=== PATIENT | male | born 1985 ===

== ENCOUNTER 2023-10-24 09:49 | Outpatient (AMB) | payer OTHER, SELFPAY ==
--- NOTE | 2023-10-24 09:59 | A.OFFPC_ITS ---
Vital Signs 10/24/23 10:02 Height 5 ft 7.32 in Weight 296 lb 2 oz BMI 45.9 BP 130/90 H Blood Pressure Location Rt brachial Position Sitting Pulse 76 Pulse Source Pulse Oximeter Pulse Oximetry (%) 97 Oxygen Delivery Method Room Air Intake Visit Reasons: New patient-req physical,stomach issues Jig Inspector Required: Yes Accompanied by: Self / Same As Patient Allergies No Known Allergies Allergy (Verified 10/24/23 10:18) Medication List - Last Reconciled 10/24/23 by NAVYA Elias No Known Home Meds Tobacco use date assessed: 10/24/23 Dental Screening Dental Screen Date: 10/24/23 Did you have a dental visit in the last 12 months?: No Did you have a dental problem in the last 6 months where you did not have access to dental care?: No Was dental information given to patient?: Yes HPI HPI Comments History of Present Illness Details 38-year-old primarily Yemeni-speaking alfonso gardiner new patient presents today to establish care past medical history significant for smoker, obesity. States was seen a few months ago at [facility] in [place] for elevated blood pressure in the 180s, states he does have a history of hypertension however he has never been on any blood pressure medication for this. Blood pressure slightly elevated office today 130/90. Patient states occasionally checks his blood pressure at work, last checked approximately a week ago and states that he had a low blood pressure reading at that time 90/70. Positive jamaal 7 in office today patient states he does feel a lot of anxiety and has been nail biting due to this, agreeable to counseling referral. Previous patient of [facility] in [place]. Patient declined medical information officer to complete this appointment. [facility] Family History (Updated 10/24/23 @ 10:25 by NAVYA Elias) Mother No problems noted. 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 1. Little interest or pleasure in doing things: not at all 2. Feeling down, depressed, or hopeless: not at all 3. Trouble falling or staying asleep, or sleeping too much: not at all 4. Feeling tired or having little energy: not at all 5. Poor appetite or overeating: not at all 6. Feeling bad about yourself - or that you are a failure or have let yourself or your family down: not at all 7. Trouble concentrating on things, such as reading the newspaper or watching television: not at all 8. Moving or speaking so slowly that other people could have noticed. Or the opposite - being so fidgety or restless that you have been moving around a lot more than usual: not at all 9. Thoughts that you would be better off or of hurting yourself in some way: not at all Total score: 0 Depression Screening Interpretation: Negative Depression Screening Done: Yes 03172 - PHQ-9 Billing: Yes Source: Developed by Drs. Fidel Glez, Letha Marc, Quinten Palmer and colleagues, with an educational malini from [employer]. Thrive Questionnaire Date Thrive assessed: 10/24/23 I am a: Patient What is your living situation today?: I have a steady place to live Within the past 12 months, did the food you bought not last and you didn't have the money to get more?: Never true Within the past 12 months, did you worry whether your food would run out before you got money to buy more?: Never true Do you have trouble paying for medicines?: No Do you have trouble getting transportation to medical appointments?: No Do you have trouble paying your heating and electricity bill?: No Do you have trouble taking care of your child, family member or friend?: No Do you have trouble with day-to-day activities such as bathing, preparing meals, shopping, managing finances, etc.?: No Are you currently unemployed and looking for a job?: No Are you interested in more education?: No Please select the resources that you would like help with: None Currently or been in a relationship where the following occur: no concerns reported AUDIT C Alcohol Use Questionnaire (AUDIT-C) 1. How often do you have a drink containing alcohol?: Never 3. How often do you have six or more drinks on one occasion?: Never Total Score: 0 JAMAAL-7 AMB Questionnaire JAMAAL-7 Date JAMAAL - 7 assessed: 10/24/23 Feeling nervous, anxious, or on edge: 2 = More than half the days Not being able to stop or control worryin = Nearly every day Worrying too much about different things: 3 = Nearly every day Trouble relaxin = More than half the days Being so restless that it is hard to sit still: 1 = Several days Becoming easily annoyed or irritable: 2 = More than half the days Feeling afraid as if something awful might happen: 2 = More than half the days Total JAMAAL-7 score (0-4 normal; 5-9 mild; 10-14 moderate; 15-21 severe): 15 Source: Developed by Drs. Fidel Glez, Letha Marc, Quinten Palmer and colleagues, with an educational malini from [employer]. JAMAAL-7 Assessment Billing JAMAAL-7 Assessment Tool: JAMAAL-7 Assessment 20905 Review of Systems Const Denies chills, Denies fatigue, Denies fever(s) and Denies poor appetite Eyes Denies no additional complaints ENT Reports Normal hearing present Card Denies chest pain, Denies syncope, Denies rapid heart rate and Denies dyspnea Resp Denies cough and Denies dyspnea GI Denies change in stool character, Denies constipation, Denies diarrhea, Denies nausea and Denies vomiting Denies dysuria, Denies urinary frequency and Denies urinary urgency Neuro Reports Normal hearing present, Denies confusion and Denies syncope Psych Denies confusion Endo Denies fatigue Physical exam (Primary Care) Vital Signs: Last Vital Signs Pulse 76 10/24/23 10:02 BP 130/90 H 10/24/23 10:02 Pulse Ox 97 10/24/23 10:02 Oxygen Delivery Method Room Air 10/24/23 10:02 BMI result Body Mass Index 45.9 Tobacco/Smoking Status: Tobacco use Status Tobacco use date assessed 10/24/23 10/24/23 10:09 Patient Tobacco Use Status Current everyday Tobacco 10/24/23 10:26 Tobacco use type Cigarette 12/01/23 10:26 e-Cigarette/Vaping Use Never Used 10/24/23 10:26 PHQ-9: PHQ-9 Score PHQ-9: Total score 0 10/24/23 11:02 Depression Screening Interpretation: Negative Thrive Assessment: Date of Thrive Assessment Date Thrive assessed 10/24/23 10/24/23 10:44 Currently or been in a relationship where the following occur: no concerns reported Const General: No confusion Orientation/consciousness: No confusion HENMT Head: Yes normocephalic and Yes atraumatic Eyes Conjunctivae: conjunctivae normal Chest Chest palpation & inspection: normal inspection of the chest Resp Effort & Inspection: normal respiratory effort Auscultation: clear to auscultation bilaterally, no crackles, no rhonchi and no wheezes Cardio Rate: regular rate Rhythm: regular rhythm Heart sounds: S1 normal heart sound present and S2 normal heart sound present GI Inspection: Yes normal to inspection Neuro General: No confusion Cranial nerves: Yes Normal hearing present Extrem General: No edema Assessment and Plan Assessment & Plan (1) Obesity: Code(s): E66.9 - Obesity, unspecified Plan: Diet and exercise to reduce BMI. (2) Generalized anxiety disorder: Code(s): F41.1 - Generalized anxiety disorder Plan: Referral entered to counseling. (3) Hypertension: Code(s): I10 - Essential (primary) hypertension Plan: Given its patient's blood pressure with labile readings. Patient advised to continue to check blood pressures periodically at home and keep a log. Follow low-salt diet exercise. Will follow-up on blood pressure in 3 months if continues to have elevated blood pressure reading did discussed with patient starting on a low-dose blood pressure medication. (4) Smoker: Code(s): F17.200 - Nicotine dependence, unspecified, uncomplicated Plan: Strongly advised to stop. Plan Follow-up in 3 months for physical exam Orders: Orders Complete Blood Count Auto Diff Today Z13.0 - Encounter for screening for diseases of the blood and blood-forming organs and certain disorders involving the immune mechanism Comprehensive [place]. Panel Fast Today I10 - Essential (primary) hypertension TSH reflex Free T4 Today Z13.29 - Encounter for screening for other suspected endocrine disorder Lipid Panel Today Z13.220 - Encounter for screening for lipoid disorders Hemoglobin A1c Today E66.9 - Obesity, unspecified Referrals Counseling Referral F41.1 - Generalized anxiety disorder Coding Level of Care Code New Pt Level 3 (45198) Diagnoses Obesity E66.9 Generalized anxiety disorder F41.1 Hypertension I10 Smoker F17.200 Additional Codes JAMAAL-7 Assessment Billing - JAMAAL-7 Assessment Tool: JAMAAL-7 Assessment 92807 ([id number])
[2023-10-24 10:02] VITALS: BP 130/90; PULSE 76; O2SAT 97; BMI 45.9
== END 2023-10-24 10:34 | disposition home or self-care (01) ==
PROVIDERS: PCP Nurse Practitioner Family; Visit Provider Nurse Practitioner Family
DX: I10 Essential (primary) hypertension (principal); Z68.42 Body mass index [BMI] 45.0-49.9, adult; E66.9 Obesity, unspecified; F41.1 Generalized anxiety disorder; F17.210 Nicotine dependence, cigarettes, uncomplicated
CPT/HCPCS: 99203

== ENCOUNTER 2023-10-24 10:39 | Outpatient (REF) | payer OTHER, SELFPAY ==
[2023-10-24 11:01] LABS: MANUAL DIFF FLAG NO
[2023-10-24 11:46] LABS: Estimated Average Glucose 217 mg/dL; Hemoglobin A1c % 9.2 % (<6.0)
[2023-10-24 11:47] LABS: Basophils Percent Auto 0.5 % (0-2); Eosinophils Absolute Auto 0.1 X10*3/uL (0.0-0.4); Eosinophils Percent Auto 0.9 % (0-4); Hematocrit 45.3 % (42.0-52.0); Hemoglobin 14.3 g/dl (14.0-18.0); Imm Gran Abs Auto 0.04 X10*3/uL (0.00-0.03); Imm Gran Pct Auto 0.5 % (0.0-0.4); Lymphocytes Absolute Auto 2.6 X10*3/uL (1.2-4.9); Mean Corpuscular HGB Conc 31.6 g/dl (31.0-36.0); Mean Corpuscular Hemoglobin 27.6 pg (27.0-33.0); Mean Corpuscular Volume 87.3 fL (80.0-98.0); Mean Platelet Volume 9.4 fL (9.4-12.4); Monocytes Absolute Auto 0.5 X10*3/uL (0.1-1.2); Monocytes Percent Auto 6.3 % (2-11); Neutrophils Absolute Auto 4.8 x10*3/uL (2.0-8.3); Neutrophils Percent Auto 59.8 % (45-73); Platelet Count 314 X10*3/uL (160-400); Red Blood Count 5.19 X10*6/uL (4.60-5.80); Red Cell Distribution Width 12.8 % (11.0-16.0); White Blood Count 8.1 X10*3/uL (4.8-10.8)
[2023-10-24 12:26] LABS: Alanine Aminotransferase 23 U/L (0-40); Alkaline Phosphatase 151 U/L (39-117); Anion Gap 11 (12-20); Aspartate Amino Transferase 13 U/L (5-37); Bilirubin Total 0.9 mg/dL (0.0-1.0); Blood Urea Nitrogen 15 mg/dL (9-16); Calcium 9.1 mg/dL (8.4-10.2); Carbon Dioxide 25 mmol/L (22-29); Chloride 106 mmol/L (96-108); Cholesterol 172 mg/dL (<200); Estimated Glomerular Filt Rate > 60; Glucose Fasting 176 mg/dL (60-99); HDL Cholesterol 31 mg/dL (>40); LDL Cholesterol Calculated 127 mg/dL (<100); Sodium 138 mmol/L (135-145); Total Protein 7.6 g/dL (6.5-8.0); Triglycerides 72 mg/dL (<150)
[2023-10-24 12:29] LABS: TSH reflex Free T4 1.47 uIU/mL (0.32-4.0)
== END 2023-10-24 10:40 | disposition home or self-care (01) ==
LOC: HO.LAB 10:39
PROVIDERS: PCP Nurse Practitioner Family; Visit Provider Nurse Practitioner Family
DX: Z13.29 Encounter for screening for other suspected endocrine disorder (principal); Z13.220 Encounter for screening for lipoid disorders; Z13.0 Encounter for screening for diseases of the blood and blood-forming organs and certain disorders involving the immune mechanism; I10 Essential (primary) hypertension; E66.9 Obesity, unspecified
CPT/HCPCS: 36415; 80053; 80061; 83036; 84443; 85025

== ENCOUNTER 2024-10-19 08:04 | Outpatient (AMB) | payer OTHER, SELFPAY ==
--- NOTE | 2024-10-19 08:15 | MHC.PC.OV ---
Vital Signs 10/19/24 08:18 Height 5 ft 7 in Weight 291 lb 4 oz BMI 45.6 BP 110/80 Blood Pressure Location Lt brachial Position Sitting Pulse 74 Pulse Source Pulse Oximeter Pulse Oximetry (%) 98 Oxygen Delivery Method Room Air Intake Visit Reasons: Re est care- PE request Intake Note: Patient is here today for a physical and ISIAH from [facility]. Pt complaint of dizziness and palpitation sometimes. Pt decline flu shot today. Hands And Dial Inspector Required: No Drum Sander: Not Required per policy Accompanied by: Self / Same As Patient Allergies No Known Allergies Allergy (Verified 10/19/24 08:17) Tobacco use date assessed: 10/19/24 Dental Screening Dental Screen Date: 10/19/24 Did you have a dental visit in the last 12 months?: No Did you have a dental problem in the last 6 months where you did not have access to dental care?: No Was dental information given to patient?: No [facility] Medical History (Updated 10/19/24 @ 08:49 by Rashad Paniagua MD) Morbid obesity with BMI of 45.0-49.9, adult Surgical History (Updated 10/19/24 @ 08:21 by CECILIO Peterson) No pertinent past surgical history Family History (Updated 10/19/24 @ 08:21 by CECILIO Peterson) Mother No problems noted. Father Heart problem Pancreatitis Stroke Maternal Aunt Stomach cancer Maternal Uncle Colon cancer Paternal Aunt Cancer Other Mental health disorder Social History Housing: Apartment Alcohol intake: former Year quit: 2020 Patient Tobacco Use Status: Current someday Tobacco user Tobacco use type: Cigarette Cigarette Packs Per Day: 0.25 Cigarettes Per Day: 3 e-Cigarette/Vaping Use: Never Used Second Hand Smoke Exposure: Yes Substance Use Type: Marijuana service: No Current occupational status: employed Current occupation: [employer] Current occupational exposures/hazards: No Cognitive needs: No Hearing needs: No Vision needs: No Questionnaire PHQ-9 Over the last 2 weeks, how often have you been bothered by any of the following problems? 1. Little interest or pleasure in doing things: not at all 2. Feeling down, depressed, or hopeless: not at all 3. Trouble falling or staying asleep, or sleeping too much: not at all 4. Feeling tired or having little energy: not at all 5. Poor appetite or overeating: not at all 6. Feeling bad about yourself - or that you are a failure or have let yourself or your family down: not at all 7. Trouble concentrating on things, such as reading the newspaper or watching television: not at all 8. Moving or speaking so slowly that other people could have noticed. Or the opposite - being so fidgety or restless that you have been moving around a lot more than usual: not at all 9. Thoughts that you would be better off or of hurting yourself in some way: not at all Total score: 0 Depression Screening Interpretation: Negative Depression Screening Done: Yes Source: Developed by Drs. Fidel Glez, Letha Marc, Quinten Palmer and colleagues, with an educational malini from [employer]. Thrive Questionnaire Date Thrive assessed: 10/19/24 I am a: Patient What is your living situation today?: I have a steady place to live Within the past 12 months, did the food you bought not last and you didn't have the money to get more?: Never true Within the past 12 months, did you worry whether your food would run out before you got money to buy more?: Never true Do you have trouble paying for medicines?: No Do you have trouble getting transportation to medical appointments?: No Do you have trouble paying your heating and electricity bill?: No Do you have trouble taking care of your child, family member or friend?: No Do you have trouble with day-to-day activities such as bathing, preparing meals, shopping, managing finances, etc.?: No Are you currently unemployed and looking for a job?: No Are you interested in more education?: No Currently or been in a relationship where the following occur: No concerns reported THRIVE Score: 0 AUDIT C Alcohol Use Questionnaire (AUDIT-C) 1. How often do you have a drink containing alcohol?: Never Total Score: 0 JAMAAL-7 AMB Questionnaire JAMAAL-7 Date JAMAAL - 7 assessed: 10/19/24 Feeling nervous, anxious, or on edge: 1 = Several days Not being able to stop or control worryin = Not at all Worrying too much about different things: 0 = Not at all Trouble relaxin = Not at all Being so restless that it is hard to sit still: 0 = Not at all Becoming easily annoyed or irritable: 0 = Not at all Feeling afraid as if something awful might happen: 0 = Not at all Total JAMAAL-7 score (0-4 normal; 5-9 mild; 10-14 moderate; 15-21 severe): 1 Source: Developed by Drs. Fidel Glez, Letha Marc, Quinten Palmer and colleagues, with an educational malini from [employer]. Physical exam (Primary Care) Vital Signs: Last Vital Signs Pulse 74 10/19/24 08:18 BP 110/80 10/19/24 08:18 Pulse Ox 98 10/19/24 08:18 Oxygen Delivery Method Room Air 10/19/24 08:18 BMI result Body Mass Index 45.6 Tobacco/Smoking Status: Tobacco use Status Tobacco use date assessed 10/19/24 10/19/24 08:24 Patient Tobacco Use Status Current someday Tobacco 10/19/24 08:24 Tobacco use type Cigarette 10/19/24 08:15 e-Cigarette/Vaping Use Never Used 10/19/24 08:15 PHQ-9: PHQ-9 Score PHQ-9: Total score 0 10/19/24 08:50 Depression Screening Interpretation: Negative Thrive Assessment: Date of Thrive Assessment Date Thrive assessed 10/19/24 10/19/24 08:24 Currently or been in a relationship where the following occur: No concerns reported Const General: cooperative and healthy appearing Nutritional Appearance: well nourished Orientation/consciousness: patient oriented x3 Limitations: no limitations HENMT Head: Yes normal to inspection Eyes General: appearance normal, both eyes and all related structures Neck Neck: Yes normal visual inspection Chest Chest palpation & inspection: normal palpation of entire chest wall Resp Effort & Inspection: normal respiratory effort Neuro General: patient oriented x3 Results AMB Hemoglobin A1c AMB Hemoglobin A1c 7.2 % Last Edit by CECILIO Peterson on 10/19/24 08:41 Results Reviewed Results Reviewed: Laboratory Last Values Hgb A1c (Clinic) 7.2 % (4.0-6.0) H 10/19/24 08:24 Coding Level of Care Code Est Pt Level 4 (92773) Complex EM visit Add On G2211 Diagnoses Type 2 diabetes mellitus E11.9 Generalized anxiety disorder F41.1 Hypertension I10 Smoker F17.200 Morbid obesity with BMI of 45.0-49.9, adult E66.01; Z68.42 Annual physical exam Z00.00 Assessment & Plan Assessment & Plan (1) Type 2 diabetes mellitus: Code(s): E11.9 - Type 2 diabetes mellitus without complications Category: Medical Plan: Metformin increased to twice a day (2) Generalized anxiety disorder: Code(s): F41.1 - Generalized anxiety disorder Category: Medical Plan: Currently on no medications (3) Hypertension: Code(s): I10 - Essential (primary) hypertension Category: Medical Plan: Stable and in range without medications (4) Smoker: Code(s): F17.200 - Nicotine dependence, unspecified, uncomplicated Category: Social Hx Plan: Counselling to quit smoking. (5) Morbid obesity with BMI of 45.0-49.9, adult: Code(s): E66.01 - Morbid (severe) obesity due to excess calories; Z68.42 - Body mass index [BMI] 45.0-49.9, adult Category: Medical Plan: Counselling on diet and exercise done. (6) Annual physical exam: Code(s): Z00.00 - Encounter for general adult medical examination without abnormal findings Plan: Fasting bw has been ordered. Orders: Orders AMB Hemoglobin A1c Today E11.9 - Type 2 diabetes mellitus without complications Medications: Changed From metformin 500 mg PO DAILY 30 tabs 3RF E11.9 - Type 2 diabetes mellitus without complications To metformin 500 mg PO BID 180 tabs 1RF 90 days E11.9 - Type 2 diabetes mellitus without complications Scribe Plan - Not visible on output: History of Present Illness The patient is a 38-year-old male presenting with the primary concern of diabetes management and routine annual evaluation. The patient was diagnosed with Type 2 Diabetes Mellitus approximately one year ago during a prior visit to this clinic. At that time, he was advised that he was prediabetic; however, the diagnosis was confirmed as diabetes. Since the diagnosis, he has been prescribed Metformin, taking a dose of 500 mg once daily in the morning. The patient has been compliant with this medication. His blood glucose levels have been measured at home and generally range from 90 to 110 mg/dL following meals when checked after approximately 30 minutes. The highest sugar level observed by the patient was approximately 150 mg/dL. I advised adjusting the timing of postprandial blood sugar checks to two hours after meals instead of 30 minutes for more accurate readings. The patient has experienced episodes of syncopal activity characterized by dizziness, feeling a hard heartbeat, and fainting, once while visiting [place]. He reported no associated symptoms such as tongue biting, incontinence, or convulsions, and recovery was spontaneous. These episodes may be related to anxiety or dehydration, as suggested by the physician. 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 - Lives with a long-term partner of 10 years without children and no immediate plans for family expansion at this time. - Smoking habit of one to two cigarettes per day, reporting variability depending on the circumstances. - Occasional use of marijuana, though he denied use of other substances. - Reports daily activity involving standing and walking but no structured exercise routine. - Manages occupational and routine life activities but has experienced syncopal episodes without clear medical interpretation. Review of Systems - Cardiovascular: Reports episodes of dizziness and rapid heartbeats without associated chest pain. - Neurological: Denies seizures or neurological deficits. - Respiratory: Denies shortness of breath. - Sleep: Reports generally sleeping around five to six hours, with some indication of waking early due to work schedules. Physical Exam Results Plan - Type 2 Diabetes Mellitus: Adjust Metformin to 500 mg twice daily, with doses in the morning and evening. Order fasting blood work, including hemoglobin A1c, for assessment and potential future medication adjustments. 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 - Syncopal Episodes: Monitor symptoms with attention to potential triggers such as anxiety or dehydration. Encourage hydration and stress reduction techniques. - Cardiology Referral: Confirm current insurance coverage to proceed with a cardiology evaluation if episodes persist or recur. Patient was informed and verbally consented to the use of an ambient scribe for clinic note documentation during this visit. Discussion Notes I discussed with the patient that his diabetes management may require adjustment based on current medication efficacy and blood glucose readings. Fasting blood work will provide insights into his glycemic control. Increasing Metformin dosage to twice daily home monitoring will be crucial in optimal diabetes control. I also recommended rechecking blood glucose levels two hours postprandially for more accurate results. For the syncopal episodes, I suspect anxiety or dehydration could be contributing factors; hence, I advised lifestyle modifications such as improved hydration and stress management. Concerning his smoking habit, I encouraged cessation for its health benefits. I will arrange for follow-up in four weeks to review his blood glucose levels and adjust treatment as necessary. Finally, should his symptoms persist or escalate, a repeat referral to cardiology will be considered based on insurance status. Patient Instructions - Increase Metformin intake to 500 mg twice daily, in the morning and evening. - Pursue fasting blood work imminently, preferably on a day off work. - Check blood sugar levels two hours post meals for accurate monitoring. - Maintain adequate hydration and manage stress to reduce the likelihood of dizziness episodes. - Attempt smoking cessation. - Schedule follow-up appointment in four weeks for review and potential treatment adjustments.
[2024-10-19 08:18] VITALS: BP 110/80; PULSE 74; O2SAT 98; BMI 45.6
== END 2024-10-19 08:48 | disposition home or self-care (01) ==
PROVIDERS: PCP Internal Medicine; Visit Provider Internal Medicine
DX: Z00.00 Encounter for general adult medical examination without abnormal findings (principal); E11.9 Type 2 diabetes mellitus without complications; E66.01 Morbid (severe) obesity due to excess calories; Z68.42 Body mass index [BMI] 45.0-49.9, adult; F41.1 Generalized anxiety disorder; I10 Essential (primary) hypertension; F17.200 Nicotine dependence, unspecified, uncomplicated

== ENCOUNTER → 2024-10-19 08:04 | Outpatient (BNVA) | payer OTHER, SELFPAY | PROVIDERS: PCP Internal Medicine; Visit Provider Internal Medicine | DX: Z00.00 Encounter for general adult medical examination without abnormal findings (principal); E11.9 Type 2 diabetes mellitus without complications; R55 Syncope and collapse; F41.1 Generalized anxiety disorder; I10 Essential (primary) hypertension; E66.01 Morbid (severe) obesity due to excess calories; Z68.42 Body mass index [BMI] 45.0-49.9, adult; F17.210 Nicotine dependence, cigarettes, uncomplicated; Z28.21 Immunization not carried out because of patient refusal | CPT/HCPCS: 83036; 96127 ==

== ENCOUNTER 2024-10-29 07:56 | Outpatient (REF) | payer OTHER, SELFPAY ==
[2024-10-29 08:33] LABS: Hematocrit 43.8 % (42.0-52.0); Hemoglobin 14.1 g/dl (14.0-18.0); Mean Corpuscular HGB Conc 32.2 g/dl (31.0-36.0); Mean Corpuscular Hemoglobin 28.4 pg (27.0-33.0); Mean Corpuscular Volume 88.1 fL (80.0-98.0); Mean Platelet Volume 8.7 fL (9.4-12.4); Platelet Count 272 X10*3/uL (160-400); Red Blood Count 4.97 X10*6/uL (4.60-5.80); Red Cell Distribution Width 12.6 % (11.0-16.0); White Blood Count 5.7 X10*3/uL (4.8-10.8)
[2024-10-29 08:55] LABS: Alanine Aminotransferase 41 U/L (0-40); Alkaline Phosphatase 118 U/L (39-117); Aspartate Amino Transferase 31 U/L (5-37); Bilirubin Direct 0.4 mg/dL (0.0-0.5); Bilirubin Total 0.9 mg/dL (0.0-1.0); Cholesterol 157 mg/dL (<200); HDL Cholesterol 25 mg/dL (>40); LDL Cholesterol Calculated 111 mg/dL (<100); Total Protein 7.4 g/dL (6.5-8.0); Triglycerides 105 mg/dL (<150)
[2024-10-29 09:14] LABS: Thyroid Stimulating Hormone 0.87 uIU/mL (0.32-4.0)
[2024-10-29 09:37] LABS: Appearance Urine Clear; Color Urine Yellow; Glucose Urine UA Negative (Negative); Leukocyte Esterase Urine Trace (Negative); Nitrite Urine Negative (Negative); Specific Gravity - Urine 1.015 (1.005-1.025); UMIC TRIGGER UA YES; Urine Blood Negative (Negative); Urine Ketones Negative (Negative); Urine Protein Negative (Neg-Trace)
[2024-10-29 09:41] LABS: Bacteria Urine None Seen (None Seen); Hyaline Casts Urine 0-2 /LPF (0-2); RBC Urine 0-2 /HPF (0-2); Squamous Epithelial Cell Urine 0-2 /HPF (0-2); WBC Urine 0-5 /HPF (0-5)
[2024-10-29 10:16] LABS: Creatinine Urine 90.95 mg/dL; Microalbum/Creatinine Ratio Ur 8.7 ug/mg cr (<30)
== END 2024-10-29 07:57 | disposition home or self-care (01) ==
LOC: HO.LAB 07:56
PROVIDERS: PCP Internal Medicine; Visit Provider Internal Medicine
DX: E11.9 Type 2 diabetes mellitus without complications (principal)
CPT/HCPCS: 36415; 80061; 80076; 81001; 81003; 82043; 82550; 82570; 84443; 85027

== ENCOUNTER 2024-11-18 09:28 | Outpatient (REF) | payer OTHER, SELFPAY ==
[2024-11-18 12:04] LABS: Alanine Aminotransferase 37 U/L (0-40); Albumin Level 4.1 g/dL (3.5-5.0); Aspartate Amino Transferase 19 U/L (5-37); Bilirubin Direct 0.2 mg/dL (0.0-0.5); Bilirubin Total 0.5 mg/dL (0.0-1.0); Total Protein 7.4 g/dL (6.5-8.0)
[2024-11-18 12:13] LABS: Appearance Urine Clear; Color Urine Yellow; Glucose Urine UA Negative (Negative); Leukocyte Esterase Urine Negative (Negative); Nitrite Urine Negative (Negative); PH 5.5 (5.0-9.0); Specific Gravity - Urine 1.015 (1.005-1.025); Urine Blood Negative (Negative); Urine Ketones Negative (Negative); Urine Protein Negative (Neg-Trace)
[2024-11-18 12:18] LABS: Erythrocyte Sedimentation Rate 14 MM/HR (0-15)
[2024-11-18 12:43] LABS: Alkaline Phosphatase 112 U/L (39-117)
[2024-11-18 14:54] LABS: HBS Num1 37.15 mIU/mL (0-7.99); HBc Num1 0.09 S/CO (0.00-0.79); HBsAGNum1 0.48 S/CO (0.00-0.99); Hepatitis A Antibody IgM 0.18 Index (0-0.79); Hepatitis B Core Antibody Nonreactive (Nonreactive); Hepatitis B Surface Antigen Negative (Negative); ~HepC Num1 0.08 S/CO (0.00-0.79); ~Hepatitis A Antibody IgM Nonreactive (Nonreactive); ~Hepatitis B Surface Antibody REACTIVE (Nonreactive); ~Hepatitis C Antibody Nonreactive (Nonreactive)
== END 2024-11-18 09:29 | disposition home or self-care (01) ==
LOC: HO.LAB 09:28
PROVIDERS: PCP Internal Medicine; Visit Provider Internal Medicine
DX: E11.9 Type 2 diabetes mellitus without complications (principal); K75.9 Inflammatory liver disease, unspecified; Z79.84 Long term (current) use of oral hypoglycemic drugs
CPT/HCPCS: 36415; 80076; 81003; 82550; 85652; 86704; 86706; 86709; 86803; 87340

== ENCOUNTER 2024-11-18 09:28 | Outpatient (AMB) | payer OTHER, SELFPAY ==
--- NOTE | 2024-11-18 09:40 | MHC.PC.OV ---
Vital Signs 11/18/24 09:44 Height 5 ft 7 in Weight 290 lb BMI 45.4 BP 120/70 Blood Pressure Location Lt brachial Position Sitting Pulse 77 Pulse Source Pulse Oximeter Pulse Oximetry (%) 98 Oxygen Delivery Method Room Air Intake Visit Reasons: 4 week f/u, Lab results Intake Note: Patient is here to follow up on Lab results and Dizziness. Territory Account Executive Required: No Group Activities Aide: Not Required per policy Allergies No Known Allergies Allergy (Verified 11/18/24 10:35) Medication List - Last Reconciled 11/18/24 by Rashad Paniagua MD metformin 500 mg PO BID 90 days Tobacco use date assessed: 11/18/24 Dental Screening Dental Screen Date: 10/19/24 [facility] Medical History (Updated 10/19/24 @ 08:49 by Rashad Paniagua MD) Morbid obesity with BMI of 45.0-49.9, adult Surgical History No pertinent past surgical history Family History Mother No problems noted. Father Heart problem Pancreatitis Stroke Maternal Aunt Stomach cancer Maternal Uncle Colon cancer Paternal Aunt Cancer Other Mental health disorder Social History Housing: Apartment Alcohol intake: former Year quit: 2020 Patient Tobacco Use Status: Current someday Tobacco user Tobacco use type: Cigarette Cigarette Packs Per Day: 0.25 Cigarettes Per Day: 3 e-Cigarette/Vaping Use: Never Used Second Hand Smoke Exposure: Yes Substance Use Type: Marijuana service: No Current occupational status: employed Current occupation: [employer] Current occupational exposures/hazards: No Cognitive needs: No Hearing needs: No Vision needs: No Questionnaire Thrive Questionnaire Date Thrive assessed: 10/19/24 JAMAAL-7 AMB Questionnaire JAMAAL-7 Date JAMAAL - 7 assessed: 10/19/24 Source: Developed by Drs. Fidel Glez, Letha Marc, Quinten Palmer and colleagues, with an educational malini from [employer] Physical exam (Primary Care) Vital Signs: Last Vital Signs Pulse 77 11/18/24 09:44 BP 120/70 11/18/24 09:44 Pulse Ox 98 11/18/24 09:44 Oxygen Delivery Method Room Air 11/18/24 09:44 BMI result Body Mass Index 45.4 Tobacco/Smoking Status: Tobacco use Status Tobacco use date assessed 11/18/24 11/18/24 09:48 Patient Tobacco Use Status Current someday Tobacco 11/18/24 09:42 Tobacco use type Cigarette 11/18/24 09:42 e-Cigarette/Vaping Use Never Used 11/18/24 09:42 Thrive Assessment: Date of Thrive Assessment Date Thrive assessed 10/19/24 11/18/24 09:42 Const General: cooperative and healthy appearing Nutritional Appearance: well nourished Orientation/consciousness: patient oriented x3 Limitations: no limitations HENMT Head: Yes normal to inspection Eyes General: appearance normal, both eyes and all related structures Neck Neck: Yes normal visual inspection Chest Chest palpation & inspection: normal palpation of entire chest wall Resp Effort & Inspection: normal respiratory effort Neuro General: patient oriented x3 Coding Level of Care Code Est Pt Level 4 (38881) Complex EM visit Add On G2211 Diagnoses Type 2 diabetes mellitus E11.9 Hepatitis K75.9 Assessment & Plan Assessment & Plan (1) Type 2 diabetes mellitus: Code(s): E11.9 - Type 2 diabetes mellitus without complications Category: Medical Plan: Metformin twice a day. Counselling on weight loss suggested. (2) Hepatitis: Code(s): K75.9 - Inflammatory liver disease, unspecified Plan: Elevated LFT noted. Patient gives no symptoms. US abdomen ordered. Rpt CPK ordered. Plan History of Present Illness The patient is a 39-year-old male presenting with concerns related to abnormal blood work findings from a previous physical examination. During the last evaluation, the patient?s liver enzymes were noted to be elevated. The patient reports intermittent pain in the liver area but denies prior knowledge of elevated liver enzymes until this recent evaluation. The patient has not had any recent liver-focused blood diagnostics since an assessment a couple of years ago, wherein results were borderline with some fluctuating values. Additionally, the patient's creatine phosphokinase (CPK) levels have been slightly elevated. 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 The patient also mentions a previous episode of dizziness that occurred months ago in [place] but has had no further incidents following that trip and since the last physical examination. He reports no current dizziness or related symptoms. 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 - Nutrition: Currently not engaged in any weight loss activities. Expresses intention to reduce sugar intake and limit specific high-carbohydrate foods such as pizza, bread, pasta, and tortillas. Plans to incorporate more green vegetables and berries into diet while reducing intake of bananas, oranges, pineapple, and grapes except for berries. - Vacations: Recently traveled for a holiday in [place]. Review of Systems - Constitutional: Denies any current dizziness or muscular aches. - Neurological: Denies further episodes of dizziness since the incident in [place]. Physical Exam General: Appearance normal, both eyes and all related structures Nutritional Appearance: Well nourished Orientation/consciousness: Patient oriented x3 Limitations: No limitations Head: Normal to inspection Neck: Normal visual inspection Chest: Normal palpation of entire chest wall Respiratory: Normal respiratory effort Neurology: Patient oriented x3, reports occasional dizziness but no recent episodes Results - Labs: Elevated liver enzymes; elevated creatine phosphokinase (CPK) levels. Plan - Order ultrasound of the liver to assess for hepatic issues and evaluate for fatty liver disease associated with metabolic syndrome. - Conduct repeat blood work to monitor liver enzymes and CPK levels. - Screen for hepatitis A, B, and C through appropriate blood tests. - Advise patient on the importance of weight management and dietary changes, emphasizing the reduction of sugar and high-carbohydrate foods to address potential metabolic syndrome. - Ensure patient follows-up after diagnostic tests to discuss further management based on results. Patient was informed and verbally consented to the use of an ambient scribe for clinic note documentation during this visit. Discussion Notes I discussed with the patient the findings of elevated liver enzymes and the possibility of metabolic syndrome, where fatty accumulations in the liver might occur. I explained the need for repeating blood work and conducting a liver ultrasound to gain more insight into the state of the liver. We discussed checking for hepatitis A, B, and C to rule out infectious causes. The patient was informed about lifestyle modifications, particularly focusing on dietary adjustments to aid weight loss and manage metabolic risks. I also advised on the reduction of sugar, refined carbohydrates, and increased consumption of vegetables and berries, emphasizing their potential benefits for liver health and metabolic syndrome management. The patient was instructed to complete the blood test immediately and return for follow-up once all diagnostics are complete. Patient Instructions - Complete blood work as soon as possible today. - Attend scheduled liver ultrasound. - Refrain from sugar and high-carbohydrate foods, focusing on incorporating more vegetables and berries into your diet. - Monitor weight and aim for gradual weight loss through dietary modifications. - Return for follow-up to discuss results and further management. Orders: Orders Liver Panel Today E11.9 - Type 2 diabetes mellitus without complications, K75.9 - Inflammatory liver disease, unspecified Erythrocyte Sedimentation Rate Today E11.9 - Type 2 diabetes mellitus without complications, K75.9 - Inflammatory liver disease, unspecified Hepatitis A,B,C Profile Today E11.9 - Type 2 diabetes mellitus without complications, K75.9 - Inflammatory liver disease, unspecified Creatine Kinase Total Today E11.9 - Type 2 diabetes mellitus without complications, K75.9 - Inflammatory liver disease, unspecified US abdomen complete Today R74.8 - Abnormal levels of other serum enzymes
[2024-11-18 09:44] VITALS: BP 120/70; PULSE 77; O2SAT 98; BMI 45.4
== END 2024-11-18 10:32 | disposition home or self-care (01) ==
PROVIDERS: PCP Internal Medicine; Visit Provider Internal Medicine
DX: E11.9 Type 2 diabetes mellitus without complications (principal); K75.9 Inflammatory liver disease, unspecified

== ENCOUNTER 2024-12-10 07:56 | Outpatient (REF) | payer BC, SELFPAY ==
--- NOTE | ~2024-12-10 | US_ITS ---
EXAMINATION: US ABDOMEN COMPLETE CLINICAL INFORMATION: Elevated liver enzymes.. COMPARISON: None available. TECHNIQUE: Real-time imaging of the abdominal viscera. 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 FINDINGS: PANCREAS: Visualized portions are unremarkable. Tail obscured by gas. ABDOMINAL AORTA: The proximal, mid, and distal segments are normal in caliber. INFERIOR VENA CAVA: Visualized portions are normal. LIVER: The liver is normal in size. The liver contour is normal. There is diffuse increased liver parenchymal echogenicity, consistent with hepatic steatosis. No focal hepatic lesion. There is no intrahepatic biliary duct dilatation seen. GALLBLADDER: The gallbladder is physiologically distended without evidence of stones, sludge, polyps, wall thickening or pericholecystic fluid. COMMON BILE DUCT: Normal in caliber measuring 0.3 cm in diameter. RIGHT KIDNEY: No hydronephrosis. No renal calculi or focal parenchymal lesions. The kidney measures 13.1 cm in maximum dimension. LEFT KIDNEY: No hydronephrosis. No focal parenchymal lesions. The kidney measures 12.0 cm in maximum dimension. There is a lower pole cluster of calculi measuring 1.0 x 0.7 x 1.2 cm. SPLEEN: The spleen measures 9.6 cm in maximum dimension. FREE FLUID: None. US/US abdomen complete IMPRESSION: 1. Diffusely mildly increased echogenicity of the liver without focal lesion. Findings likely represent steatosis. 2. Nonobstructing left nephrolithiasis. 3. Remainder of the exam is normal. Electronically signed by: Zev Crenshaw MD 12/10/2024 09:59 AM [facility]
== END 2024-12-10 07:57 | disposition home or self-care (01) ==
LOC: HO.US 07:56
PROVIDERS: PCP Internal Medicine; Visit Provider Internal Medicine
DX: R74.8 Abnormal levels of other serum enzymes (principal)
CPT/HCPCS: 76700

== ENCOUNTER → 2024-12-10 07:58 | Outpatient (BNV) | payer BC, SELFPAY | PROVIDERS: PCP Internal Medicine; Visit Provider Radiology Diagnostic Radiology | DX: N20.0 Calculus of kidney (principal) | CPT/HCPCS: 76700 ==

== ENCOUNTER 2025-07-23 08:31 | Outpatient (REF) | payer BC, SELFPAY ==
--- OUTSIDE RECORDS SUMMARY | 2025-07-23 08:34 | XMS_ITS | Clinical Summary ---
Author Organization [facility] ity Address [address] [place] [address] Care Team Providers Care Assistant Softball Coach Name Role Phone Unavailable Primary Care Provider Unavailabl e Medical History Medical History Date Comments Eczema DX:Eczema Snoring DX:Snoring Social History Tobacco Use Types Packs/Day Years Used Date Smoking Tobacco: Never Assessed Sex and Gender Information Value Date Recorded Sex Assigned at Not on file Legal Sex Male 3:33 PM EST Gender Identity Not on file Sexual Orientation Not on file Obstetrics History Plan of Treatment Health Maintenance Due Date Last Done Comments DTaP,Tdap,and Td Vaccines (1 - Tdap) 2004 Hepatitis B Vaccines (1 of 3 - 19+ 3-dose series) 2004 Cholesterol Screening (Lipid Panel) 10/23/2022 HIV Screening 10/23/2022 Hepatitis C Screening 10/23/2022 Social Influencers of Health Screening 10/23/2022 COVID-19 Vaccine ( - 2023-2 5 season) 2024 Depression Screening 11/24/2024 Influenza Vaccine (#1) 2025 HIB Vaccines Aged Out No longer eligi ble based on patient's age to complete this topic HPV Vaccines Aged Out No longer eligi ble based on patient's age to complete this topic Hepatitis A Vaccines Aged Out No long er eligible based on patient's age to complete this topic IPV Vaccines Aged Out No longer eligi ble based on patient's age to complete this topic MMR Vaccines Aged Out No longer eligi ble based on patient's age to complete this topic Meningococcal ACWY Vaccine Aged Out N o longer eligible based on patient's age to complete this topic Meningococcal B Vaccine Aged Out No l onger eligible based on patient's age to complete this topic Pneumococcal Vaccine: Pediat rics (0 to 5 Years) and At-Risk Patients (6 to 49 Years) Aged Out No longer eligible b ased on patient's age to complete this topic RSV Immunization Patients Un ashanti 20 months Aged Out No longer eligible b ased on patient's age to complete this topic Varicella Vaccines Aged Out No longer eligible based on patient's age to complete this topic
--- OUTSIDE RECORDS SUMMARY | 2025-07-23 08:34 | XMS_ITS | Clinical Summary ---
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 Primary Care Provider Source Comments PLEASE NOTE, if this patient is a minor, it may be UNLAWFUL to discuss sensitive information that is contained in these records (such as FAMILY PLANNING, MENTAL HEALTH or SUBSTANCE ABUSE) with the minor patient's parent or other person without the patient's specific authorization.[facility] Allergies No known active allergies Medications triamcinolone acetonide (KENALOG) 0.5 % creamIndication s:Chronic dermatitis of hands Apply topically 2 (two) times daily To hands 30 g 2 9 Active ammonium lactate (LAC-HYDRIN) 12 % lotionIndicatio ns:Chronic dermatitis of hands Apply topically as needed for dry skin 400 g 5 9 Active diphenhydrAMINE HCl (BENADRYL) 25 mg tablet Take 1 Tab by mouth nightly at bedtime as needed for itching 30 Tab 2 9 Active albuterol sulfate 90 mcg/actuation inhalerIndicati ons:SOB (shortness of breath) Inhale 2 Puffs into the lungs every 4 to 6 (four to six) hours as needed for shortness of breath or wheezing 1 Inhaler 0 Active naproxen (NAPROSYN) 500 mg tabletIndicatio ns:Other headache syndrome Take 1 Tab by mouth 2 (two) times daily with a meal As needed for headache and fever 30 Tab 1 0 Active benzonatate (TESSALON) 200 mg capsuleIndicati ons:Cough Take 1 Capsule by mouth 3 (three) times daily as needed for cough 90 Capsule 1 Active benzocaine-ment hoL (CHLORASEPTIC) 6-10 mg lozengeIndicati ons:Sore throat Take 1 Lozenge by mouth every 2 (two) hours as needed for sore throat 50 Lozenge 1 Active Active Problems Problem Noted Date Diagnosed Date Left ventricular diastolic dysfunction 1 Overview (08/09/2021): Seen on echo 07/2021 Snoring 05/16/2019 Eczema 03/21/2019 Immunizations Immunization Administration Dates Next Due TDAP 07/23/2019 Varicella (Varivax), Live Vaccine 07/23/2019 Social History Tobacco Use Types Packs/Day Years Used Date Smoking Tobacco: Never Smokeless Tobacco: Never Tobacco Cessation:Counseling Given: No Alcohol Use Standard Drinks/Week Comments Yes 0 (1 standard drink = 0.6 oz pur e alcohol) O[employer]inally Social Connections Answer Date Recorded Connectedness 0 08/14/2024 Financial Resource Strain Answer Date R ecorded Financial Resource Strain 0 2018 Stress Answer Date Recorded Stress 0 07/13/2019 Physical Activity Answer Date Recorded Physical Activity 0 07/13/2019 Food Insecurity Answer Date Recorded Food 0 08/19/2024 Transportation Needs Answer Date Record ed Transportation 0 07/13/2019 Housing Stability Answer Date Recorded Housing 0 07/13/2019 Safety and Environment Answer Date Yves rded Safety 0 07/13/2019 Utilities Answer Date Recorded Utilities 0 07/13/2019 Employment Answer Date Recorded Stress 0 08/14/2024 Sex and Gender Information Value Date Recorded Sex Assigned at Male 03/05/2019 11:28 AM PDT Legal Sex Male 9:11 AM PDT Gender Identity Male 03/05/2019 11:28 AM PDT Sexual Orientation Straight 03/05/2019 11 :28 AM PDT Last Filed Vital Signs Vital Sign Reading Time Taken Comments Blood Pressure 118/86 06/01/2021 8:48 AM EDT Pulse 99 06/01/2021 8:48 AM EDT Temperature 36.8 C (98.3 F) 06/01/2021 8:48 AM EDT Respiratory Rate 22 06/01/2021 8:48 AM EDT Oxygen Saturation 98% 06/01/2021 8:48 AM EDT Inhaled Oxygen Concentration - - Weight 155.6 kg (343 lb) 06/01/2021 8:48 AM EDT Height 170.2 cm (5' 7 ) 06/01/2021 8:48 AM EDT Body Mass Index 53.72 06/01/2021 8:48 AM EDT Plan of Treatment Health Maintenance Due Date Last Done Comments Anxiety Screening 1985 Tobacco Screening 1985 Imm-Hepatitis B (1 of 3 - 19 + 3-dose series) 2004 Diabetes Screening 06/01/2022 06/01/2021, 0 03/08/2019, 03/08/2019 Hypertension Screening (#1) 05/31/2024 [id number] () 07/25/2024 Alcohol and Drug Screen 11/24/2024 06/01/2021, 03/08 Depression Annual Screen 11/24/2024 06/01/2021 Imm-Influenza (#1) 2025 Imm-DTaP/Tdap/Td (2 - Td or Tdap) 07/23/2029 019 HIV Screening Completed 06/01/2021, 03/08/2019 Hepatitis C Screening Completed 06/01/2021 Procedures Procedure Name Priority Date/Time Associated Diagnosis Comments HIV 1/2 AG & AB W/RFLX (4TH GEN) Routine 06/01/2021 9:29 AM EDT Orthopnea HEPATITIS C AB W/RFLX HCV RNA, QT, RT PCR Routine 06/01/2021 9:29 AM EDT Orthopnea COMPREHENSIVE METABOLIC PANEL Routine 06/01/2021 9:29 AM EDT Orthopnea from Last 3 Months or Most Recently Relevant to Health Maintenance Results * Hep C Antibody with Reflex HCV RNA (06/01/2021 9:29 AM EDT) HEPATITIS C ANTIBODY NON-REACT DORIAN NON-REACT DORIAN [employer] [facility] SIGNAL TO CUT-OFF 0.05 <1.00 [employer] [facility] Comment: HCV antibody was non-reactive. There is no laboratory evidence of HCV infection. In most cases, no further action is required. However, if recent HCV exposure is suspected, a test for HCV RNA (test code 66592) is suggested. For additional information please refer to http://[employer]/faq/YUE85n7 (This link is being provided for informational/ educational purposes only.) Blood Blood / Unknown 06/01/2021 9 :29 AM EDT 06/01/2021 9:30 AM EDT Antonio Noel MD LAB - BLOOD DRAW Edited Resu lt - Final Performing Organization Address [facility]/ZIP Co de Phone Number [facility] [address] [address], [facility] [address] [address] * HIV Ag & Ab with Reflex Western Blot (06/01/2021 9:29 AM EDT) [facility] HIV AG/AB, 4TH GEN NON-REAC TIVE NON-REAC TIVE [facility] [facility] Comment: HIV-1 antigen and HIV-1/HIV-2 antibodies were not detected. There is no laboratory evidence of HIV infection. PLEASE NOTE: This information has been disclosed to you from records whose confidentiality may be protected by state law. If your state requires such protection, then the state law prohibits you from making any further disclosure of the information without the specific written consent of the person to whom it pertains, or as otherwise permitted by law. A general authorization for the release of medical or other information is NOT sufficient for this purpose. For additional information please refer to http://[email or web address]/faq/SEN452 (This link is being provided for informational/ educational purposes only.) The performance of this assay has not been clinically validated in patients less than 2 years old. Blood Blood / Unknown 06/01/2021 9 :29 AM EDT 06/01/2021 9:30 AM EDT Antonio Noel MD LAB - BLOOD DRAW Edited Resu lt - Final Performing Organization Address City/[facility]/ZIP Co de Phone Number [employer] [facility] [address] [address], [facility] [address] [address] * (ABNORMAL) CMP (06/01/2021 9:29 AM EDT) GLUCOSE 121(H) 65 - 99 mg/dL [employer] [facility] Comment: Fasting reference interval For someone without known diabetes, a glucose value between 100 and 125 mg/dL is consistent with prediabetes and should be confirmed with a follow-up test. UREA NITROGEN (BUN) 15 7 - 25 mg/dL [employer] [facility] CREATININE (blood) 0.99 0.60 - 1.35 mg/dL [employer] [facility] GFR ESTIMATED 98 > OR = 60 mL/min/1 .73m2 [employer] [facility] EGFR 114 > OR = 60 mL/min/1 .73m2 [employer] [facility] BUN/CREATININE RATIO NOT APPLICABLE 6 - 22 [employer] [facility] SODIUM 140 135 - 146 mmol/L [employer] [facility] POTASSIUM 4.3 3.5 - 5.3 mmol/L [employer] [facility] CHLORIDE 105 98 - 110 mmol/L [employer] [facility] CARBON DIOXIDE 27 20 - 32 mmol/L [employer] [facility] CALCIUM 8.7 8.6 - 10.3 mg/dL [employer] [facility] PROTEIN, TOTAL 7.0 6.1 - 8.1 g/dL [facility] ALBUMIN 3.8 3.6 - 5.1 g/dL [employer] GLOBULIN 3.2 1.9 - 3.7 g/dL (calc) [employer] [facility] ALBUMIN/GLOBUL IN RATIO 1.2 1.0 - 2.5 (calc) [employer] BILIRUBIN, TOTAL 0.5 0.2 - 1.2 mg/dL [employer] [facility] ALKALINE PHOSPHATASE 155(H) 36 - 130 U/L [employer] [facility] AST 14 10 - 40 U/L [employer] ALT 19 9 - 46 U/L [employer] Blood Blood / Unknown 06/01/2021 9 :29 AM EDT 06/01/2021 9:30 AM EDT Antonio Noel MD LAB - BLOOD DRAW Edited Resu lt - Final [facility] [address] [facility] [address] [place] [address], [facility] [address] [address] from Last 3 Months or Most Recently Relevant to Health Maintenance Insurance [employer] Member Subscriber Plan / Payer (Ef fective 2019-Present) Name:Evangelista Mckeon Relation to Subscriber:Self Name:Evangelista Mckeon Payer ID:[id number] Type:Indemnity Address: [facility] [address] [place] [address] [facility] Care Teams Painter Tumbling Barrel Relationship Specialty Start Date End Date Sallie Evans FNP [address] [place] [address] PCP - General Internal Medicine 08/14/19
[2025-07-23 08:57] LABS: Hematocrit 41.1 % (42.0-52.0); Hemoglobin 13.5 g/dl (14.0-18.0); Mean Corpuscular HGB Conc 32.8 g/dl (31.0-36.0); Mean Corpuscular Hemoglobin 28.4 pg (27.0-33.0); Mean Corpuscular Volume 86.5 fL (80.0-98.0); NRBC Abs Auto 0.000 X10*3/uL (0.0-0.012); NRBC Pct Auto 0.0 /100WBC (0.0-0.2); Platelet Count 246 X10*3/uL (160-400); Red Blood Count 4.75 X10*6/uL (4.60-5.80); White Blood Count 6.4 X10*3/uL (4.8-10.8)
[2025-07-23 09:04] LABS: Hemoglobin A1C 168.4891 umol/L; Total Hemoglobin (HGBA1C) 3465.3272 umol/L
[2025-07-23 09:38] LABS: Anion Gap 13 (12-20); Blood Urea Nitrogen 16 mg/dL (9-16); Calcium 8.7 mg/dL (8.4-10.2); Carbon Dioxide 26 mmol/L (22-29); Chloride 105 mmol/L (96-108); Cholesterol 169 mg/dL (<200); Estimated Glomerular Filt Rate > 60; HDL Cholesterol 35 mg/dL (>40); Potassium 4.5 mmol/L (3.3-5.1); Sodium 139 mmol/L (135-145); Triglycerides 88 mg/dL (<150)
[2025-07-23 09:59] LABS: Thyroid Stimulating Hormone 1.40 uIU/mL (0.32-4.0)
[2025-07-23 10:13] LABS: Appearance Urine Clear; Glucose Urine UA Negative (Negative); PH 5.5 (5.0-9.0); Specific Gravity - Urine 1.015 (1.005-1.025)
== END 2025-07-23 08:32 | disposition home or self-care (01) ==
LOC: HO.LAB 08:31
PROVIDERS: PCP Internal Medicine; Visit Provider Internal Medicine
DX: E11.9 Type 2 diabetes mellitus without complications (principal)
CPT/HCPCS: 36415; 80048; 80061; 81003; 83036; 84443; 85027